=== PATIENT | male | born 1945 | race Caucasian/White ===

== ENCOUNTER → 2016-05-08 | Outpatient (CLI) | payer MEDICARE ==
[~2016-05-08] MED LIST: ESCI10TA55 PO; EXEN2VIA SQ; INSU100I14 SQ; INSU300I SQ; METF1000 PO; ROSU10TA PO; TRAN4TAB PO; VERA120T6 PO
--- OUTSIDE RECORDS SUMMARY | 2016-05-08 15:20 | XMS REPORT | Continuity of Care Document ---
Author Author [facility] Organization [facility] Address Unknown Phone Unavailable Care Team Providers Care Squad Sergeant Name Role Phone MOLLY DIANE MD PCP Insurance Providers Payer Name Policy Number Subscriber Name Relationship [employer] [id number] Chani Hardy 18 Self / Same As Patient Blue [employer] [facility] Supp [id number] Chani Hardy 18 Self / Same As Patient Advance Directives Directive Response Recorded Date/Time Advance Directives No 03/14/16 9:59am Health Care Power of Well Puller Head No 03/14/16 9:59am Organ Donor No 03/14/16 9:59am Resuscitation Status Full Code 03/14/16 9:59am Problems No problem information available. Medications Current Home Medications Medication Dose Units Route Directions Days/Qty Instructions Start Date Insulin Glargine,Hum.rec.anlog 300 Unit/1 Ml 70 Unit Sub-Q Twice A Day 03/14/16 Insulin Aspart 300 Units/3 Ml 50 Units Sub-Q After Meals 03/14/16 Exenatide Microspheres 2 Mg 2 Mg Sub-Q Weekly 03/14/16 Rosuvastatin Calcium 10 Mg 10 Mg Oral Daily 03/14/16 Trandolapril 4 Mg 4 Mg Oral Daily 03/14/16 Verapamil Hcl 120 Mg 240 Mg Oral Daily 03/14/16 Escitalopram Oxalate 10 Mg 10 Mg Oral Daily 03/14/16 Metformin Hcl 1,000 Mg 1,000 Mg Oral Twice A Day 03/14/16 Social History Social History Problem Response Recorded Date/Time Alcohol Use Denies Use 03/14/2016 9:59am Recreational Drug Use No 03/14/2016 9:59am Recent Foreign Travel No 03/14/2016 9:56am Recent Infectious Disease Exposure No 03/14/2016 9:56am Sexually Transmitted Disease No 03/14/2016 9:59am HIV/AIDS No 03/14/2016 9:59am Smoking Status Never a Smoker 03/14/2016 9:59am Recent Hopitalizations No 03/14/2016 9:59am Sexually Transmitted Disease No 03/14/2016 9:59am Query Response Start Date Stop Date Smoking Status Never a Smoker Hospital Discharge Instructions No hospital discharge instructions. Plan of Care Discharge Date 03/14/16 11:55am Instructions/Education Provided COLONOSCOPY Diverticulitis (DC) Prescriptions See Medication Section Functional Status No functional status results. Allergies, Adverse Reactions, Alerts Allergen Type Severity Reaction Status Last Updated azithromycin ([id number]) Allergy Mild Active 11/19/10 Immunizations No immunization records. Vital Signs Acute Vital Signs Vital Response Date/Time Temperature (Fahrenheit) 98.7 degrees F (97.6 - 99.5) 03/14/2016 11:55am Temperature (Calculated Celsius) 37.68533 degrees C (36.4 - 37.5) 03/14/2016 11:55am Temperature Source Tympanic 03/14/2016 11:55am Pulse Rate (adult) 94 bpm (60 - 90) 03/14/2016 11:55am Respiratory Rate 18 bpm (12 - 24) 03/14/2016 11:55am O2 Sat by Pulse Oximetry 93 % (88 - 100) 03/14/2016 11:55am Blood Pressure 144/80 mm Hg 03/14/2016 11:55am Blood Pressure Mean 101 mm Hg 03/14/2016 9:53am Pain Numeric Pain Scale 0-No Pain 03/14/2016 11:55am Pain Intensity 0 03/14/2016 11:50am Height (Feet) 5 feet 03/14/2016 9:58am Height (Inches) 11.00 inches 03/14/2016 9:58am Height (Calculated Centimeters) 180.189208 cm 03/14/2016 9:58am Weight (Pounds) 250 pounds 03/14/2016 9:58am Weight (Ounces) 0.0 oz 03/14/2016 9:58am Weight (Calculated Grams) 512690.09 gm 03/14/2016 9:58am Weight (Calculated Kilograms) 113.737643 kilograms 03/14/2016 9:58am Calculated BMI 34.9 03/14/2016 9:58am Results Laboratory Results Test Name Result Units Flags Reference Collection Date/Time Result Date/ Time Comments Glucometer 180 MG/DL H 70-110 03/14/2016 9:47am 03/14/2016 9:54am Procedures Procedure Status Date Provider(s) Diagnostic colonoscopy Completed 03/14/16 MOLLY DIANE MD Encounters Encounter Location Arrival/Admit Date Discharge/Depart Date Attending Provider Departed [facility] 03/14/16 9:12am 11:55am MOLLY DIANE MD Registered Clinic [facility] 03/12/16 5:43am MOLLY DIANE MD
--- NOTE | 2016-05-08 16:45 | Diagnostic Imaging Report ---
PROCEDURE: MRI lumbar spine. TECHNIQUE: Multiplanar, multisequence MRI of the lumbar spine was performed without contrast. INDICATION: Weight loss. Back pain with bilateral leg pain. FINDINGS: There is satisfactory alignment of the lumbar spine. The vertebral body heights are preserved. There is disc desiccation at all levels with mild disc height loss at L3/4 and L4/5 levels. The cauda equina and conus medullaris appear grossly unremarkable. There is mild marrow signal edema seen in the posterior elements along the mid and lower lumbar spine, most prominent in the left pedicle of L5. This appears to relate to the adjacent facet joints with some adjacent reactive soft tissue edema seen likely secondary to arthritis. No suspicious focal marrow lesion seen. T12/L1: No disc herniation. No spinal canal or foraminal stenosis. L1/2: No disc herniation. There is mild facet hypertrophy. No central canal, lateral recess, or foraminal stenosis. L2/3: There is a diffuse disc bulge and bilateral ysov-om-bagnslhi facet arthropathy. There is slight narrowing of the lateral recesses bilaterally with no significant central canal stenosis. No significant foraminal narrowing is seen. L3/4: There is a diffuse disc bulge and byct-hr-qvaffvuu facet arthropathy. No central canal stenosis. There is culz-kv-qlyxeyzj lateral recess stenosis abutting the descending L4 nerve roots bilaterally. There is bilateral foraminal stenosis, mild on the left side and moderate on the right side. L4/5: There is a heterogeneous density lesion seen in the left lateral recess measuring 1.2 cm transversely, 1.3 cm craniocaudally, and 1 cm anteroposteriorly abutting the left paracentral aspect of diffusely bulging disc and abutting posteriorly the medial aspect of the left facet joint. Both facet joints demonstrate jllhfbvb-pd-ekzoqc arthropathy. It is uncertain if this is a synovial cyst arising from the facet joint or less likely an extruded disc. It is difficult to be certain based on this exam. It is resulting in severe compression of the left lateral recess compressing the descending L5 nerve root on the left side. There is no central canal stenosis. The right lateral recess demonstrates fkiz-kx-vkqhqwon stenosis. The neural foramina demonstrate mild narrowing bilaterally. L5/S1: There is no significant disc herniation. There is mild facet hypertrophy. No central canal or lateral recess stenosis. No foraminal stenosis. IMPRESSION: There is severe stenosis of the left lateral recess and compression of the descending left L5 nerve root at the L4/5 level, related to a 1.3 cm lesion abutting the medial aspect of the left facet joint, and also inseparable from the left paracentral aspect of the L4/5 disc. This could be a synovial cyst arising from the adjacent facet joint or less likely a disc extrusion. A contrast-enhanced exam with dedicated thin section images through L4/5 level might help differentiate a synovial cyst from an extrusion. Dictated by: Dictated on workstation # [id number]
== END ==
LOC: RAD 15:16
PROVIDERS: ATTEND Internal Medicine
DX: M54.16 Radiculopathy, lumbar region (principal)
CPT/HCPCS: 72148

== ENCOUNTER 2016-09-24 13:15 | Outpatient (RCR) | payer MEDICARE | END 2016-12-23 | disposition home or self-care (01) | LOC: ONC 13:15 | PROVIDERS: ATTEND Radiology Radiation Oncology | DX: C61 Malignant neoplasm of prostate (principal) | CPT/HCPCS: 76873; 99215 ==

== ENCOUNTER 2017-01-07 08:36 | Outpatient (CLI) | payer MEDICARE ==
[~2017-01-07] VITALS: Ht 180.3 cm; Wt 108.4 kg
[2017-01-07 08:46] VITALS: BP 137/76
[2017-01-07] MEDS ORDERED: GABA-488 PO (08:54)
[2017-01-07] MEDS ORDERED: POTA99TA21 PO (08:54)
[2017-01-07] MEDS ORDERED: METF-478 PO (08:54)
[2017-01-07] MEDS ORDERED: CHOL40003 PO (08:54)
[2017-01-07 09:28] LABS: BILIRUBIN,URINE NEGATIVE (NEGATIVE); KETONES,URINE NEGATIVE (NEGATIVE); LEUKOCYTE ESTERASE ,URINE NEGATIVE (NEGATIVE); NITRITE,URINE NEGATIVE (NEGATIVE); PH,URINE 5 (5-9); PROTEIN,URINE 1+ (NEGATIVE); UROBILINOGEN,URINE NORMAL (NORMAL)
--- NOTE | 2017-01-07 09:43 | Diagnostic Imaging Report ---
PA and lateral views of the chest Indication: Brachytherapy Findings: The lungs are clear. The heart size is at the upper limits of normal. There is no effusion or pneumothorax The mediastinum and niles appear unremarkable. Internal fixation plate and screws along the left clavicle is seen. Impression: No acute process. Dictated by: Dictated on workstation # [id number]
== END 2017-01-07 09:20 | disposition home or self-care (01) ==
LOC: PREOP 08:36
PROVIDERS: ATTEND Radiology Radiation Oncology
DX: C61 Malignant neoplasm of prostate; Z01.811 Encounter for preprocedural respiratory examination; Z01.812 Encounter for preprocedural laboratory examination
CPT/HCPCS: 71020; 81000; 87081

== ENCOUNTER 2017-01-14 12:15 | Day surgery (SDC) | payer MEDICARE ==
[~2017-01-14] VITALS: Ht 180.3 cm; Wt 108.4 kg
[2017-01-14 12:15] VITALS: BP 134/75
[~2017-01-14 12:15] MED LIST changes: +CHOL40003 PO; +GABA-488 PO; +METF-478 PO; +POTA99TA21 PO
--- NOTE | 2017-01-14 12:54 | Progress Note-Pre Operative ---
Pre-Operative Progress Note H&P Reviewed The H&P was reviewed, patient examined and no changes noted. Date Seen by Provider: Jan 14, 2017 Time Seen by Provider: 12:30 Date H&P Reviewed: Jan 14, 2017 Time H&P Reviewed: 12:30 Pre-Operative Diagnosis: Prostate cancer cT1c, PSA 5.16, [place] 7 (3+4) REEMA CARR MD Jan 14, 2017 12:54
[2017-01-14] MEDS ORDERED: ACET1TAB43 PO (13:01)
[2017-01-14] MEDS ORDERED: CIPR-226 PO (13:01)
--- NOTE | 2017-01-14 13:04 | Discharge Inst-Simple/Standard ---
Discharge Inst-Standard Discharge Medications New, Converted or Re-Newed RX: RX on Chart Patient Instructions/Follow Up Plan of Care/Instructions/FU: 1) Follow up with Dr. Goldberg on 02/10/17 at 10:45 a.m. 2) Follow up at cancer center post implant ct scan 02/817 at 11:00 a.m. Activity as Tolerated: Yes Discharge Diet: No Restrictions REEMA CARR MD Jan 14, 2017 13:04
[2017-01-14] MEDS ORDERED: LEVOFLOXACIN 500 MG/100 ML IV 100 ML IV ONE (13:30)
[2017-01-14] MEDS ORDERED: FAMOTIDINE 20MG/2ML IV (PEPCID) ONE (13:44)
[2017-01-14] MEDS ORDERED: LACTATED RINGERS 1,000 ML IV PRN (13:47)
[2017-01-14] MEDS ORDERED: SEVOFLURANE (ULTANE) 15 ML INHAL SOLN ONE (13:48)
[2017-01-14] MEDS ORDERED: proPOfol 200 MG/20 ML (DIPRIVAN) VIAL IV ONE (13:48)
[2017-01-14] MEDS ORDERED: LIDOCAINE PF 2% 5 ML (XYLOCAINE) VIAL ONE (13:48)
[2017-01-14] MEDS ORDERED: fentaNYL INJECTION 100 MCG/2 ML AMP ONE (13:48)
[2017-01-14] MEDS ORDERED: MIDAZOLAM 2 MG/2 ML (VERSED) VIAL ONE (13:50)
[2017-01-14] MEDS ORDERED: FAMOTIDINE 20MG/2ML IV (PEPCID) IV ONE (14:00)
[2017-01-14] MEDS ORDERED: morphine INJ 10 MG/ML 1ML (SYR OR VIAL) ONE (15:37)
[2017-01-14] MEDS: morphine INJ 10 MG/ML 1ML (SYR OR VIAL) IVP PRN ×2 (15:47→15:53)
[2017-01-14] MEDS ORDERED: HYDROmorphone (DILAUDID) 2 MG/ML VIAL ONE (15:56)
[2017-01-14] MEDS: HYDROmorphone (DILAUDID) 2 MG/ML VIAL IVP PRN ×4 (16:00→16:25)
[2017-01-14] MEDS ORDERED: ONDANSETRON 4 MG/2 ML (SDV) Z0FRAN IVP PRN (16:00)
[2017-01-14] MEDS ORDERED: HYDROmorphone (DILAUDID) 2 MG/ML VIAL IVP PRN (16:15)
--- NOTE | 2017-01-14 16:25 | Progress Note-Post Operative ---
Post-Operative Progess Note Surgeon (s)/Barn Boss (s) Surgeon REEMA CARR MD Barn Boss: Isabela FREEMAN MD Pre-Operative Diagnosis Prostate cancer cT1c, PSA 5.16, [place] 7 (3+4) Post-Operative Diagnosis Same as pre-op Procedure & Operative Findings Date of Procedure 01/14/17 Procedure Performed/Findings 100% Cesium 131 permanent prostate seed implant with cystogram Prostate volume 45.4 cc Anesthesia Type General Estimated Blood Loss Estimated blood loss (mL): Minimal Specimens/Packing Specimens Removed None Packing: N/A REEMA CARR MD Jan 14, 2017 16:25
[2017-01-14 16:45] VITALS: BP 146/79
[2017-01-14] MEDS ORDERED: APAP 300 MG/CODEINE 30 MG (TYLENOL #3) TAB PO ONE ×2 (17:06→17:15)
[2017-01-14 17:20] VITALS: BP 134/82
[2017-01-14 18:00] VITALS: BP 147/83
[2017-01-14 18:15] VITALS: BP 147/83
--- NOTE | 2017-01-14 20:05 | Diagnostic Imaging Report ---
INDICATION: Prostate cancer. IMPRESSION: 12.9 seconds of fluoroscopy was used by Dr. Kim during brachytherapy treatment. Single digital image shows the brachytherapy seeds projecting over the prostate. Dictated by: Dictated on workstation # [id number]
== END 2017-01-14 18:15 | disposition home or self-care (01) ==
LOC: SDC 12:15
PROVIDERS: ATTEND Radiology Radiation Oncology
DX: C61 Malignant neoplasm of prostate (principal); E11.9 Type 2 diabetes mellitus without complications; I10 Essential (primary) hypertension; L40.9 Psoriasis, unspecified; G47.33 Obstructive sleep apnea (adult) (pediatric); Z79.4 Long term (current) use of insulin; Z79.899 Other long term (current) drug therapy
CPT/HCPCS: 76965; 77290; 77318; 77332; 77336; 77470; 77778; 82962

== ENCOUNTER 2017-02-11 11:05 | Outpatient (RCR) | payer MEDICARE ==
[~2017-02-11 11:05] MED LIST changes: +ACET1TAB43 PO; +CIPR-226 PO
== END 2017-05-12 | disposition home or self-care (01) ==
LOC: ONC 11:05
PROVIDERS: ATTEND Radiology Radiation Oncology
DX: C61 Malignant neoplasm of prostate (principal); E11.9 Type 2 diabetes mellitus without complications; I10 Essential (primary) hypertension; L40.9 Psoriasis, unspecified; G47.33 Obstructive sleep apnea (adult) (pediatric); Z79.4 Long term (current) use of insulin; Z79.899 Other long term (current) drug therapy
CPT/HCPCS: 77290; 77295; 77336

== ENCOUNTER 2017-07-21 15:10 | Outpatient (RCR) | payer MEDICARE ==
[~2017-07-21 15:10] MED LIST changes: -METF1000 PO; +METF10002 PO; -TRAN4TAB PO; +TRAN4TAB24 PO
== END 2017-10-19 | disposition home or self-care (01) ==
LOC: ONC 15:10
PROVIDERS: ATTEND Radiology Radiation Oncology
DX: C61 Malignant neoplasm of prostate (principal); E11.9 Type 2 diabetes mellitus without complications; I10 Essential (primary) hypertension; L40.9 Psoriasis, unspecified; G47.33 Obstructive sleep apnea (adult) (pediatric); Z79.4 Long term (current) use of insulin; Z79.899 Other long term (current) drug therapy
CPT/HCPCS: 36415; 84153; 99213

== ENCOUNTER 2018-02-09 13:03 | Outpatient (RCR) | payer MEDICARE ==
[~2018-02-09 13:03] MED LIST changes: +METF-399 PO; -METF10002 PO
== END 2018-05-10 | disposition home or self-care (01) ==
LOC: ONC 13:03
PROVIDERS: ATTEND Radiology Radiation Oncology
DX: C61 Malignant neoplasm of prostate (principal); E11.9 Type 2 diabetes mellitus without complications; I10 Essential (primary) hypertension; L40.9 Psoriasis, unspecified; G47.33 Obstructive sleep apnea (adult) (pediatric); Z79.4 Long term (current) use of insulin; Z79.899 Other long term (current) drug therapy
CPT/HCPCS: 99212

== ENCOUNTER → 2018-03-08 | Outpatient (CLI) | payer MEDICARE ==
--- NOTE | 2018-03-08 13:59 | Diagnostic Imaging Report ---
PROCEDURE: US Thyroid. TECHNIQUE: Multiple real-time grayscale images were obtained of the thyroid in various projections. INDICATION: Enlarged thyroid. No prior studies are available for comparison. Right lobe of the thyroid measures 5.1 x 1.9 x 2.1 cm and the left lobe measures 4.6 x 1.6 x 1.5 cm. Both lobes are fairly homogeneous echotexture. Small cyst in the lower pole left lobe approximately 6 mm in size. No solid lesion is detected. IMPRESSION: Subcentimeter cyst left lobe. No dominant thyroid mass is detected. Dictated by: Dictated on workstation # [id number]
== END ==
LOC: RAD 12:13
PROVIDERS: ATTEND Otolaryngology Otolaryngology/Facial Plastic Surgery
DX: E04.1 Nontoxic single thyroid nodule (principal)
CPT/HCPCS: 76536

== ENCOUNTER 2019-06-22 10:45 | Outpatient (CLI) | payer MEDICARE ==
[~2019-06-22] VITALS: Ht 180.3 cm; Wt 107.3 kg
[~2019-06-22 10:45] MED LIST changes: -ROSU10TA PO; +ROSU10TA22 PO; +VERA120T15 PO; -VERA120T6 PO
[2019-06-22] MEDS ORDERED: GBPN600T PO (10:48)
[2019-06-22] MEDS ORDERED: CHOL200078 PO (10:48)
[2019-06-22] MEDS ORDERED: METH2.5T PO (10:48)
== END 2019-06-22 11:31 | disposition home or self-care (01) ==
LOC: PREOP 10:45
PROVIDERS: ATTEND Internal Medicine
DX: Z01.818 Encounter for other preprocedural examination (principal)

== ENCOUNTER → 2020-01-06 | Outpatient (CLI) | payer MEDICARE ==
[~2020-01-06] MED LIST changes: +CHOL200078 PO; +GBPN600T PO; +METH2.5T PO
--- NOTE | 2020-01-06 14:41 | Diagnostic Imaging Report ---
PROCEDURE: MRI lumbar spine. TECHNIQUE: Multiplanar, multisequence MRI of the lumbar spine was performed without contrast. INDICATION: Low back pain. COMPARISON: Correlation is made with prior MRI of the lumbar spine from 05/08/2016. FINDINGS: The curvature and alignment of the lumbar spine is normal. Vertebral body heights are maintained. Marrow signal intensity is unremarkable. No geographic marrow lesion or acute compression fracture is seen. There is some generalized degenerative disc disease with variable disc space narrowing and desiccation. Conus is unremarkable at the L1 level. T12-L1: Central canal and neural foramina are widely patent. L1-T2: There is some ligamentous thickening and facet changes but central canal is widely patent. Neural foramina are patent. L2-L3: There is ligamentous thickening and facet changes with broad-based disc/osteophyte complex. This does result in moderate trefoil narrowing of the central canal. There is also significant narrowing of bilateral lateral recesses, with mild left and moderate right neural foraminal stenosis. This is similar to prior exam. L3-L4: There is broad-based disc/osteophyte complex indenting ventral thecal sac, symmetric to the left. This does produce significant narrowing of the lateral recesses bilaterally. AP dimensions of the canal are within normal limits. There is moderate bilateral neural foraminal stenosis. L4-L5: Broad-based disc/osteophyte complex flattens the ventral thecal sac but central canal remains widely patent. There is significant narrowing of the lateral recesses bilaterally. In addition, there is abnormal soft tissue signal intensity in the left neural foramen at this level which may represent extruded disc posterolaterally. This does significantly narrow the left neural foramen. Right neural foramen is patent. Previously noted synovial cyst is no longer visualized. L5-S1: Central canal is widely patent. Neural foramina are widely patent. Paraspinous tissues are unremarkable. IMPRESSION: Generalized lumbar spondylosis with central canal, lateral recess and neural foraminal narrowing described level by level above. There does appear to be probable extruded disc posterolaterally on the left at the L4-L5 level significantly narrowing the left neural foramen. Dictated by: Dictated on workstation # [id number]
== END ==
LOC: RAD 13:15
PROVIDERS: ATTEND Internal Medicine
DX: M47.26 Other spondylosis with radiculopathy, lumbar region (principal); M48.061 Spinal stenosis, lumbar region without neurogenic claudication
CPT/HCPCS: 72148

== ENCOUNTER → 2022-02-24 | Outpatient (CLI) | payer MEDICARE ==
[~2022-02-24] MED LIST changes: +ACET-11 PO; -ACET1TAB43 PO; +ESCI-2 PO; -ESCI10TA55 PO; +NF-CRES10T PO; -POTA99TA21 PO; +POTA99TA26 PO; -ROSU10TA22 PO; -TRAN4TAB24 PO; +TRAN4TAB25 PO
== END ==
LOC: RT 16:01
PROVIDERS: ATTEND Internal Medicine
DX: R07.9 Chest pain, unspecified (principal)
CPT/HCPCS: 36415; 84484; 93005